=== PATIENT | female | born 1995 | race African-American/Black ===

== ENCOUNTER 2016-12-29 15:20 | Emergency (ER) | payer MEDICAID ==
[~2016-12-29] VITALS: Ht 172.7 cm; Wt 63.0 kg
[2016-12-29 15:42] VITALS: BP 99/66
== END 2016-12-29 16:58 | disposition home or self-care (01) ==
LOC: ER 15:26
DX: K04.7 Periapical abscess without sinus (principal); F17.210 Nicotine dependence, cigarettes, uncomplicated

== ENCOUNTER 2017-05-08 14:44 | Emergency (ER) | payer MEDICAID ==
[~2017-05-08] VITALS: Ht 172.7 cm; Wt 63.0 kg
[2017-05-08 15:40] VITALS: BP 108/70
[2017-05-08 16:02] LABS: Basophils # (auto) 0 uL; Basophils % (auto) 0.1 % (0.0-2.0); Eosinophils # (auto) 0.1 uL; Eosinophils % (auto) 0.8 % (0.0-7.0); Hematocrit 39.8 % (36.0-46.0); Hemoglobin 13.5 g/dL (12.2-16.2); Lymphocytes # (auto) 2.8 uL; Lymphocytes % (auto) 20.8 % (10.0-50.0); Mean Corpuscular Hemoglobin 28.8 pg (28.0-32.0); Mean Corpuscular Hgb Conc. 33.8 g/dL (32.0-36.0); Mean Platelet Volume 7.8 fL (6.9-10.8); Monocytes # (auto) 0.8 uL; Neutrophils # (auto) 9.6 uL; Neutrophils % (auto) 72.3 % (37.0-80.0); Platelet Count (auto) 262 10^3/uL (140-450); Red Cell Distribution Width 14.8 % (11.8-14.3); White Blood Cell 13.3 10^3/uL (4.4-10.8)
[2017-05-08 16:42] LABS: Urine Bilirubin Negative (Negative); Urine Blood Negative /uL (Negative); Urine Color Yellow (Yellow); Urine Glucose Normal (Normal); Urine Ketone Negative (Negative); Urine Mucus FEW (None Seen); Urine Nitrite Negative (Negative); Urine RBC 1 /hpf (0 - 4); Urine Squamous Epithelial Cell FEW /hpf (<5); Urine Urobilinogen Normal (Negative); Urine pH 6.5 (5.0-8.0)
== END 2017-05-08 17:28 | disposition home or self-care (01) ==
LOC: ER 14:44
DX: O26.891 Other specified pregnancy related conditions, first trimester (principal); O99.332 Smoking (tobacco) complicating pregnancy, second trimester; N89.8 Other specified noninflammatory disorders of vagina; F17.210 Nicotine dependence, cigarettes, uncomplicated; Z3A.14 14 weeks gestation of pregnancy
CPT/HCPCS: 36415; 76801; 81001; 84702; 85025

== ENCOUNTER 2017-05-10 03:56 | Emergency (ER) | payer MEDICAID ==
[~2017-05-10] VITALS: Ht 172.7 cm; Wt 62.6 kg
[2017-05-10 05:57] LABS: Basophils # (auto) 0 uL; Basophils % (auto) 0.4 % (0.0-2.0); Eosinophils # (auto) 0.1 uL; Eosinophils % (auto) 0.8 % (0.0-7.0); Hematocrit 40.9 % (36.0-46.0); Hemoglobin 13.8 g/dL (12.2-16.2); Lymphocytes # (auto) 2.2 uL; Lymphocytes % (auto) 16.3 % (10.0-50.0); Mean Corpuscular Hemoglobin 28.3 pg (28.0-32.0); Mean Corpuscular Hgb Conc. 33.6 g/dL (32.0-36.0); Mean Corpuscular Volume 84.2 fL (80.0-100.0); Mean Platelet Volume 8.1 fL (6.9-10.8); Monocytes # (auto) 0.6 uL; Monocytes % (auto) 4.8 % (0.0-12.0); Neutrophils # (auto) 10.5 uL; Neutrophils % (auto) 77.7 % (37.0-80.0); Nucleated Red Blood Cells % 0.1 %; Platelet Count (auto) 258 10^3/uL (140-450); Red Cell Distribution Width 14.3 % (11.8-14.3); White Blood Cell 13.5 10^3/uL (4.4-10.8)
[2017-05-10 06:12] LABS: Albumin 3.6 g/dL (3.4-5.0); BUN/Creatinine Ratio 14.5; Bilirubin, Total 0.2 mg/dL (0.2-1.0); Calcium 8.8 mg/dL (8.5-10.1); Potassium 3.6 mmol/L (3.5-5.1); Total Protein 7.8 g/dL (6.4-8.2)
[2017-05-10 07:29] LABS: Urine Color Red (Yellow)
[2017-05-10 07:33] LABS: Urine Glucose Normal (Normal)
[2017-05-10 07:34] LABS: Urine Bilirubin Negative (Negative); Urine Blood 2+ /uL (Negative); Urine Ketone Negative (Negative); Urine Nitrite Negative (Negative); Urine RBC TNTC /hpf (0 - 4); Urine Urobilinogen Normal (Negative); Urine pH 6.5 (5.0-8.0)
[2017-05-10] MEDS ORDERED: SODIUM CHLORIDE 0.9% 1,000 ML IV ONE (08:05)
[2017-05-10] MEDS ORDERED: ONDANSETRON HCL 4 MG/2 ML VIAL IV ONE (08:45)
[2017-05-10] MEDS ORDERED: HYDROmorphone HCL 2 MG/ML VL IV ONE (08:45)
[2017-05-10 10:10] VITALS: BP 110/77
== END 2017-05-10 09:08 | disposition home or self-care (01) ==
LOC: ER 03:58
DX: O36.4XX0 Maternal care for intrauterine death, not applicable or unspecified (principal); O20.0 Threatened abortion; Z3A.14 14 weeks gestation of pregnancy
CPT/HCPCS: 36415; 76805; 80053; 81001; 84702; 85025; 96361; 96374; 96375; 99285; J1170; J2405; J7030